=== PATIENT | male | born 1995 | race Caucasian/White ===

== ENCOUNTER 2017-05-31 17:17 | Emergency (ER) | payer OTHER ==
[~2017-05-31] VITALS: Ht 175.3 cm; Wt 81.8 kg
[2017-05-31 17:21] VITALS: TEMP 37.2; Ht 175.3 cm; Wt 81.8 kg
[2017-05-31] MEDS ORDERED: SODIUM CHLORIDE 0.9% 1000ML 1,000 ML IV STA (17:31)
[2017-05-31 17:40] VITALS: O2SAT 97
--- NOTE | 2017-05-31 17:48 | EMERGENCY ROOM VISIT NOTE ---
History Report prepared by Panfilo: Summer Sparrow Under the Supervision of: Dr. Kai Marks D.O. First contact with patient: 17:25 Chief Complaint: CHEST PAIN Stated Complaint: CHEST PAIN History of Present Illness The patient is a 22 year old male who presents to the Emergency Room with complaints of intermittent chest pain starting 4 days ago. He describes the pain as a soft pressure. It is present in the left lower area of his chest. The pain lasts for a couple minutes at a time. He currently does not have any pain. He last had the pain while he was in the ED waiting room. The pain is worse with sitting forward and deep breaths. The pain does not change with eating. He reports SOB. He denies any diaphoresis, nausea, vomiting, abdominal pain, or back pain. He also notes that over the past year he has been having sharp pain left sided chest pain at random. He states that he has not had this for the past couple of weeks. The patient is a [employer] student. He admits to occasional alcohol and cigar use. He last drank alcohol 2 nights ago. He did not drink excessively. He has been eating and drinking well. He notes his grandfather had a cardiac arrest when he was in his late 60s. His other grandfather has a history of blood clot in the leg. He denies any sick contacts. He has a history of ear tubes and broken shoulder. He is not on any medications. Source of History: patient Onset: 4 days ago Position: chest (left) Quality: pressure (soft) Timing: intermittent Modifying Factors (Worsening): breathing, other (sitting up) Associated Symptoms: + SOB, No diaphoresis, No nausea, No vomiting, No abdominal pain, No back pain Review of Systems See HPI for pertinent positives & negatives. A total of 10 systems reviewed and were otherwise negative. Past Medical & Surgical Medical Problems: (1) No chronic problems Family History Blood clots Heart disease Social History Alcohol Use: occasionally Occupation Status: [employer] student Current/Historical Medications No Active Prescriptions or Reported Meds Allergies Uncoded Allergies: NO KNOWN ALLERGIES (Allergy, Unknown, ., 05/31/17) Physical Exam Vital Signs Date Time Temp Pulse Resp B/P (MAP) Pulse Ox O2 Delivery O2 Flow Rate FiO2 05/31/17 18:30 101 18 145/73 98 Room Air 05/31/17 17:40 97 Room Air 10/18/17 17:39 104 05/31/17 17:21 37.2 107 18 145/94 100 Room Air Physical Exam GENERAL: Patient is awake, alert, and in no acute distress. Patient is resting comfortably and showing no signs of anxiety EYES: The conjunctivae are clear. The pupils are round and reactive. EARS, NOSE, MOUTH AND THROAT: The nose is without any evidence of any deformity. Mucous membranes are moist tongue is midline NECK: The neck is nontender and supple. RESPIRATORY: Normal respiratory effort is noted there is no evidence of wheezing rhonchi or rales CARDIOVASCULAR: Tachycardic, but regular rhythm. No definite murmur noted to auscultation. GASTROINTESTINAL: The abdomen is soft. Bowel sounds are present in all quadrants. Abdomen is nontender MUSCULOSKELETAL/EXTREMITIES: There is no evidence of gross deformity full range of motion is noted in the hips and shoulders SKIN: There is no obvious evidence of any rash. There are no petechiae, pallor or cyanosis noted. NEUROLOGIC: Patient is awake alert and oriented x3 strength is symmetric patellar reflexes are 2+ bilaterally Medical Decision & Procedures ER Provider Diagnostic Interpretation: X-ray results as stated below per interpretation by me and the radiologist. TWO VIEW CHEST CLINICAL HISTORY: Atypical chest pain. FINDINGS: PA and lateral chest radiographs are obtained. No prior studies are available for comparison at the time of dictation. The cardiomediastinal silhouette is unremarkable. There are low lung volumes with bibasilar atelectasis. The lungs and pleural spaces are otherwise clear. There is no pneumothorax. The bony thorax appears intact. IMPRESSION: Low lung volumes with no active disease in the chest. Electronically signed by: Ritesh Hoffman M.D. 05/31/2017 6:23 PM Dictated Date/Time: 05/31/2017 6:22 PM Laboratory Results 05/31/17 17:40 Red Blood Count 5.42, Mean Corpuscular Volume 85.2, Mean Corpuscular Hemoglobin 29.9, Mean Corpuscular Hemoglobin Concent 35.1, Mean Platelet Volume 10.0, Neutrophils (%) (Auto) 64.8, Lymphocytes (%) (Auto) 26.7, Monocytes (%) (Auto) 7.1, Eosinophils (%) (Auto) 0.7, Basophils (%) (Auto) 0.2, Neutrophils # (Auto) 6.05, Lymphocytes # (Auto) 2.49, Monocytes # (Auto) 0.66, Eosinophils # (Auto) 0.07, Basophils # (Auto) 0.02 05/31/17 17:40 Test 05/31/17 17:40 White Blood Count 9.34 K/uL (4.8-10.8) Red Blood Count 5.42 M/uL (4.7-6.1) Hemoglobin 16.2 g/dL (14.0-18.0) Hematocrit 46.2 % (42-52) Mean Corpuscular Volume 85.2 fL (80-100) Mean Corpuscular Hemoglobin 29.9 pg (25-34) Mean Corpuscular Hemoglobin Concent 35.1 g/dl (32-36) Platelet Count 208 K/uL (130-400) Mean Platelet Volume 10.0 fL (7.4-10.4) Neutrophils (%) (Auto) 64.8 % Lymphocytes (%) (Auto) 26.7 % Monocytes (%) (Auto) 7.1 % Eosinophils (%) (Auto) 0.7 % Basophils (%) (Auto) 0.2 % Neutrophils # (Auto) 6.05 K/uL (1.4-6.5) Lymphocytes # (Auto) 2.49 K/uL (1.2-3.4) Monocytes # (Auto) 0.66 K/uL (0.11-0.59) Eosinophils # (Auto) 0.07 K/uL (0-0.5) Basophils # (Auto) 0.02 K/uL (0-0.2) RDW Standard Deviation 37.4 fL (36.4-46.3) RDW Coefficient of Variation 12.1 % (11.5-14.5) Immature Granulocyte % (Auto) 0.5 % Immature Granulocyte # (Auto) 0.05 K/uL (0.00-0.02) Erythrocyte Sedimentation Rate 4 mm/hr (0-14) Prothrombin Time 10.3 SECONDS (9.0-12.0) Prothromb Time International Ratio 1.0 (0.9-1.1) Activated Partial Thromboplast Time 28.2 SECONDS (21.0-31.0) Partial Thromboplastin Ratio 1.1 Anion Gap 7.0 mmol/L (3-11) Est Creatinine Clear Calc Drug Dose 124.4 ml/min Estimated GFR () 133.8 Estimated GFR (Non- 115.4 BUN/Creatinine Ratio 14.6 (10-20) Calcium Level 9.2 mg/dl (8.5-10.1) Total Bilirubin 0.4 mg/dl (0.2-1) Direct Bilirubin < 0.1 mg/dl (0-0.2) Aspartate Amino Transf (AST/SGOT) 32 U/L (15-37) Alanine Aminotransferase (ALT/SGPT) 76 U/L (12-78) Alkaline Phosphatase 58 U/L (45-117) Troponin I < 0.015 ng/ml (0-0.045) C-Reactive Protein < 0.29 mg/dl (0-0.29) Total Protein 7.9 gm/dl (6.4-8.2) Albumin 4.3 gm/dl (3.4-5.0) Lipase 138 U/L (73-393) Laboratory results per my review. ECG Indication: chest pain Rate (beats per minute): 119 Rhythm: sinus tachycardia Findings: no ectopy, other (no acute ST segment abnormality) Comparison ECG Date: no prior available ED Course 1727: The patient was evaluated in room B12B. A complete history and physical examination were performed. 1842: Upon reevaluation, the patient is resting comfortably. I discussed the results and treatment plan with him. He verbalized agreement of the treatment plan. He was discharged home. Medical Decision Prior records/ancillary studies reviewed. Triage Nursing notes reviewed. The patient's history was concerning for chest pain. Differential diagnosis: Etiologies such as cardiac ischemia, aortic dissection, pulmonary embolism, pneumonia, pneumothorax, musculoskeletal, infections, pericarditis, myocarditis , esophageal rupture, gastrointestinal, as well as others were entertained. The patient is a 22-year-old male who presented to the emergency department for an evaluation of intermittent left-sided chest pain. The patient had episodes of intermittent chest pain that he states have been ongoing for more than a year. The patient did not have specific exertional symptoms. The patient's chest pain was currently absent. The patient was found have a tachycardia but his d-dimer is negative. He was not hypoxic. The patient's EKG otherwise did not show any acute ischemic changes. His cardiac biomarkers were negative. I discussed the patient's laboratory and radiographic studies with him as well as the limitations of the emergency department chest pain. The patient was encouraged to follow-up with [facility] this week for reevaluation. He was also encouraged to rest and avoid any strenuous activity. He was also encouraged to return to the emergency department immediately if symptoms change worsen or the need arises. Medication Reconcilliation Current Medication List: was personally reviewed by me Blood Pressure Screening Patient's blood pressure: Elevated blood pressure Blood pressure disposition: Referred to PCP Impression Primary Impression: Left sided chest pain Scribe Attestation The scribe's documentation has been prepared under my direction and personally reviewed by me in its entirety. I confirm that the note above accurately reflects all work, treatment, procedures, and medical decision making performed by me. Departure Information Dispostion Home / Self-Care Prescriptions No Active Prescriptions or Reported Meds Referrals [facility] Forms HOME CARE DOCUMENTATION FORM, IMPORTANT VISIT INFORMATION Patient Instructions ED Chest Pain Atypical Unkn Cause, [facility] Additional Instructions Follow-up with [facility] as scheduled for further evaluation. Rest and avoid any strenuous activity. Return to the emergency department if symptoms change worsen or the need arises. Your blood pressure was mildly elevated in the emergency department today. This could be situational but should be rechecked at [facility].
[2017-05-31 18:03] LABS: BASO % 0.2 %; BASO ABS # 0.02 K/uL (0-0.2); COMPLETE YES; EOS % 0.7 %; HEMATOCRIT 46.2 % (42-52); IG% 0.5 %; LYMPH % 26.7 %; LYMPH ABS # 2.49 K/uL (1.2-3.4); MEAN CELL VOLUME 85.2 fL (80-100); MEAN CORPUSCULAR HEMOGLOBIN 29.9 pg (25-34); MEAN CORPUSCULAR HGB CONC 35.1 g/dl (32-36); MONO % 7.1 %; NEUT % 64.8 %; PARTIAL THROMBOPLASTIN RATIO 1.1; PLATELET COUNT 208 K/uL (130-400); PROTHROMBIN TIME (PATIENT) 10.3 SECONDS (9.0-12.0); RED BLOOD COUNT 5.42 M/uL (4.7-6.1); WHITE BLOOD COUNT 9.34 K/uL (4.8-10.8)
--- NOTE | 2017-05-31 18:24 | DIAGNOSTIC IMAGING REPORT ---
TWO VIEW CHEST CLINICAL HISTORY: Atypical chest pain. FINDINGS: PA and lateral chest radiographs are obtained. No prior studies are available for comparison at the time of dictation. The cardiomediastinal silhouette is unremarkable. There are low lung volumes with bibasilar atelectasis. The lungs and pleural spaces are otherwise clear. There is no pneumothorax. The bony thorax appears intact. IMPRESSION: Low lung volumes with no active disease in the chest. Electronically signed by: Ritesh Hoffman M.D. 05/31/2017 6:23 PM Dictated Date/Time: 05/31/2017 6:22 PM
[2017-05-31 18:30] VITALS: BP 145/73; PULSE 101; O2SAT 98
[2017-05-31 18:33] LABS: ALT/SGPT 76 U/L (12-78); AST/SGOT 32 U/L (15-37); BLOOD UREA NITROGEN 14 mg/dl (7-18); BUN/CREATININE RATIO 14.6 (10-20); C-REACTIVE PROTEIN < 0.29 mg/dl (0-0.29); CALCIUM 9.2 mg/dl (8.5-10.1); CARBON DIOXIDE 26 mmol/L (21-32); CHLORIDE 104 mmol/L (98-107); CREATININE 0.94 mg/dl (0.60-1.40); GLUCOSE 96 mg/dl (70-99); POTASSIUM 3.3 mmol/L (3.5-5.1); SODIUM 137 mmol/L (136-145)
[2017-05-31 18:38] LABS: ALKALINE PHOSPHATASE 58 U/L (45-117)
== END 2017-05-31 18:58 | disposition home or self-care (01) ==
LOC: C.EDB 17:20
DX: R07.9 Chest pain, unspecified (principal); R00.0 Tachycardia, unspecified; Z82.49 Family history of ischemic heart disease and other diseases of the circulatory system